=== PATIENT | male | born 1955 | race Caucasian/White ===

== ENCOUNTER 2018-04-05 10:39 | Inpatient (IN) ==
[2018-04-05] MEDS ORDERED: DILTIAZEM 25 MG/5 ML VIAL IV ONE (11:23)
[2018-04-05] MEDS ORDERED: ALUM/MAG/SIMETH/LIDO VISC 1:1 30 ML BOTTLE PO STA (11:24)
[2018-04-05] MEDS ORDERED: MORPHINE 4 MG/1 ML VIAL IV STA (11:24)
[2018-04-05] MEDS ORDERED: ONDANSETRON 4 MG/2 ML VIAL IV STA (11:24)
[2018-04-05] MEDS ORDERED: DILTIAZEM 50 MG/10 ML VIAL IV STA (11:24)
[2018-04-05] MEDS ORDERED: ASPIRIN 325 MG TABLET PO STA (11:24)
[2018-04-05] MEDS ORDERED: SODIUM CHLORIDE 0.9% 500 ML IV STA (11:24)
[2018-04-05] MEDS ORDERED: NITROGLYCERIN 2% OINT 1 INCH/GM PACK TOP STA (11:24)
[2018-04-05 11:29] LABS: Basophils # 0.1 10*3/uL (0.0-0.2); Basophils % 0.9 % (0.0-0.8); Eosinophils # 0.3 10*3/uL (0.0-0.87); Eosinophils % 2.8 % (0.00-10.9); Hematocrit 43.9 VOL% (42.0-52.0); Hemoglobin 15.4 GM/DL (14.0-18.0); Immature Granulocytes % 0.2 %; Immature Granulocytes Absolute 0.02 #; Lymphocytes % 32.8 % (21.2-54.2); Mean Corpuscular HGB Conc 35.1 GM/DL (32-36); Mean Corpuscular Hemoglobin 28 PG (27-34); Mean Platelet Volume 10.2 FL (9.6-12.0); Monocytes # 0.8 10*3/uL (0.11-0.8); Monocytes % 9.2 % (1.7-12.7); Neutrophils # 4.9 10*3/uL (1.4-7.4); Neutrophils % 54.1 % (38.7-73.9); Platelet Count 221 T/CUMM (130-400); Red Blood Count 5.49 MC/CUMM (3.8-5.5); Red Cell Distribution Width 13.7 % (9.3-17.3)
[2018-04-05 11:35] LABS: INR 1.2; PT Patient Result 12.7 SECS
[2018-04-05] MEDS: DILTIAZEM INJ 100 MG in SODIUM CHLORIDE 0.9% 100 ML IV SCH ×2 (11:46→21:49)
[2018-04-05 11:58] LABS: Bilirubin,Total 0.9 MG/DL (0.2-1.0); Calcium 8.5 MG/DL (8.5-10.1); Osmolality,Calculated 274.8 MOS/KG (273-304); Potassium 4.1 MMOL/L (3.5-5.1); Total Protein 7.2 G/DL (6.4-8.3)
[2018-04-05] MEDS ORDERED: MAGNESIUM SULF RIDER 2 GM in PREMIX 1 EACH IV STA (12:05)
[2018-04-05] MEDS ORDERED: ENOXAPARIN 100 MG/ML SYRINGE SUBCUT STA (12:16)
[2018-04-05] MEDS ORDERED: MORPHINE 4 MG/1 ML VIAL IV PRN (17:25)
[2018-04-05] MEDS ORDERED: LACTULOSE 20 GM/30 ML UDCUP PO PRN (17:25)
[2018-04-05] MEDS ORDERED: ACETAMINOPHEN 325 MG TABLET PO PRN (17:25)
[2018-04-05] MEDS ORDERED: DEXTROSE 50% 25 GM/50 ML VIAL IV PRN (17:25)
[2018-04-05] MEDS ORDERED: ONDANSETRON 4 MG/2 ML VIAL IV PRN (17:25)
[2018-04-05] MEDS ORDERED: GLUCAGON 1 MG VIAL IM PRN (17:25)
[2018-04-05] MEDS ORDERED: DOCUSATE SODIUM 100 MG CAPSULE PO PRN (17:25)
[2018-04-05] MEDS ORDERED: MAGNESIUM SULF RIDER 2 GM in PREMIX 1 EACH IV PRN (17:31)
[2018-04-05] MEDS ORDERED: MAGNESIUM SULF RIDER 4 GM in PREMIX 1 EACH IV PRN (17:31)
[2018-04-05] MEDS: INSULIN LISPRO 100 UNIT/ML SUBCUT SCH (21:45)
[2018-04-06 04:55] LABS: Basophils # 0.1 10*3/uL (0.0-0.2); Basophils % 0.8 % (0.0-0.8); Eosinophils # 0.2 10*3/uL (0.0-0.87); Eosinophils % 1.9 % (0.00-10.9); Hematocrit 42.8 VOL% (42.0-52.0); Hemoglobin 14.8 GM/DL (14.0-18.0); Immature Granulocytes % 0.4 %; Immature Granulocytes Absolute 0.05 #; Lymphocytes # 2.5 10*3/uL (1.4-4.0); Lymphocytes % 20.8 % (21.2-54.2); Mean Corpuscular HGB Conc 34.6 GM/DL (32-36); Mean Corpuscular Hemoglobin 28 PG (27-34); Mean Corpuscular Volume 81.2 FL (87-102); Mean Platelet Volume 10.3 FL (9.6-12.0); Monocytes # 1.1 10*3/uL (0.11-0.8); Monocytes % 9.1 % (1.7-12.7); Platelet Count 223 T/CUMM (130-400); Red Blood Count 5.27 MC/CUMM (3.8-5.5); Red Cell Distribution Width 14.3 % (9.3-17.3); White Blood Count 11.9 T/CUMM (4-12)
[2018-04-06 05:21] LABS: Calcium 8.8 MG/DL (8.5-10.1); Osmolality,Calculated 274.7 MOS/KG (273-304); Osmolality,Calculated 276.5 MOS/KG (273-304)
[2018-04-06] MEDS ORDERED: ENOXAPARIN 150 MG/ML SYRINGE SUBCUT SCH (07:00)
[2018-04-06] MEDS: PANTOPRAZOLE 40 MG TABLET PO SCH (09:52)
[2018-04-06] MEDS: METOPROLOL TARTRATE 50 MG TABLET PO SCH ×2 (09:52→21:31)
[2018-04-06] MEDS: INSULIN LISPRO 100 UNIT/ML SUBCUT SCH ×4 (09:52→21:31)
[2018-04-06] MEDS: DILTIAZEM INJ 100 MG in SODIUM CHLORIDE 0.9% 100 ML IV SCH (11:21)
[2018-04-06] MEDS ORDERED: WARFARIN 5 MG TABLET PO SCH (18:00)
[2018-04-07 04:31] LABS: Basophils # 0.1 10*3/uL (0.0-0.2); Eosinophils # 0.3 10*3/uL (0.0-0.87); Eosinophils % 3.3 % (0.00-10.9); Hematocrit 46.6 VOL% (42.0-52.0); Hemoglobin 15.6 GM/DL (14.0-18.0); Immature Granulocytes % 0.3 %; Immature Granulocytes Absolute 0.03 #; Lymphocytes # 3.3 10*3/uL (1.4-4.0); Lymphocytes % 36.4 % (21.2-54.2); Mean Corpuscular HGB Conc 33.5 GM/DL (32-36); Mean Corpuscular Hemoglobin 28 PG (27-34); Mean Corpuscular Volume 82.8 FL (87-102); Mean Platelet Volume 10.6 FL (9.6-12.0); Monocytes % 11.4 % (1.7-12.7); Neutrophils # 4.4 10*3/uL (1.4-7.4); Neutrophils % 47.6 % (38.7-73.9); Platelet Count 202 T/CUMM (130-400); Red Blood Count 5.63 MC/CUMM (3.8-5.5); Red Cell Distribution Width 14.5 % (9.3-17.3); White Blood Count 9.1 T/CUMM (4-12)
[2018-04-07 06:00] LABS: INR 1.1; PT Patient Result 11.3 SECS
[2018-04-07 06:08] LABS: Calcium 8.5 MG/DL (8.5-10.1); Osmolality,Calculated 275.7 MOS/KG (273-304)
[2018-04-07] MEDS: INSULIN LISPRO 100 UNIT/ML SUBCUT SCH (07:28)
[2018-04-07 08:02] VITALS: BP 154/91
[2018-04-07] MEDS: METOPROLOL TARTRATE 50 MG TABLET PO SCH (09:01)
[2018-04-07] MEDS: PANTOPRAZOLE 40 MG TABLET PO SCH (09:02)
== END 2018-04-07 10:40 | disposition home or self-care (01) | DRG 309 ==
LOC: N.ED 10:39 → SUATTDRO 12:16 → N.EDINP 12:16 → N.TELES 14:15
PROVIDERS: ADMIT Internal Medicine; ATTEND Internal Medicine Geriatric Medicine

== ENCOUNTER 2022-10-01 13:30 | Observation (INO) ==
[2022-10-01] MEDS ORDERED: DILTIAZEM 25 MG/5 ML VIAL IV STA (14:04)
[2022-10-01] MEDS: DILTIAZEM INJ 100 MG in SODIUM CHLORIDE 0.9% 100 ML IV SCH (14:14)
[2022-10-01 14:20] LABS: Basophils # 0.1 10*3/uL (0.0-0.2); Basophils % 0.4 % (0.0-0.8); Eosinophils % 0.1 % (0.00-10.9); Hematocrit 49.9 VOL% (42.0-52.0); Hemoglobin 17.6 GM/DL (14.0-18.0); Immature Granulocytes % 0.8 %; Immature Granulocytes Absolute 0.11 #; Lymphocytes # 0.9 10*3/uL (1.4-4.0); Lymphocytes % 6.4 % (21.2-54.2); Mean Corpuscular HGB Conc 35.3 GM/DL (32-36); Mean Corpuscular Volume 79.2 FL (87-102); Mean Platelet Volume 10.4 FL (9.6-12.0); Monocytes # 1.9 10*3/uL (0.11-0.8); Monocytes % 14.7 % (1.7-12.7); Neutrophils % 77.6 % (38.7-73.9); Platelet Count 214 T/CUMM (130-400); Red Cell Distribution Width 14.1 % (9.3-17.3); White Blood Count 13.2 T/CUMM (4-12)
[2022-10-01 14:27] LABS: Albumin 4.2 G/DL (3.4-5.0); Bilirubin,Total 2.9 MG/DL (0.20-1.00); Calcium 9.7 MG/DL (8.5-10.1); Osmolality,Calculated 278.4 MOS/KG (273-304); Potassium 3.1 MMOL/L (3.5-5.1); Total Protein 8.2 G/DL (6.4-8.2)
[2022-10-01 14:28] LABS: PT Patient Result 10.9 SECS (10.1-12.1)
[2022-10-01] MEDS ORDERED: hydrALAZINE 20 MG/1 ML VIAL IV PRN (15:06)
[2022-10-01] MEDS ORDERED: ACETAMINOPHEN 325 MG TABLET PO PRN (15:06)
[2022-10-01] MEDS ORDERED: ONDANSETRON 4 MG/2 ML VIAL IV PRN (15:06)
[2022-10-01] MEDS ORDERED: guaiFENesin/DM ER 600-30 MG TABLET PO PRN (15:06)
[2022-10-01] MEDS ORDERED: DOCUSATE SODIUM 100 MG CAPSULE PO PRN (15:06)
[2022-10-01] MEDS ORDERED: GLUCAGON 1 MG VIAL IM PRN (15:06)
[2022-10-01] MEDS ORDERED: POTASSIUM CHLORIDE 20 MEQ TABLET PO STA (15:11)
[2022-10-01] MEDS ORDERED: DEXTROSE 10% 250 ML BAG IV PRN (15:19)
[2022-10-01] MEDS: INSULIN REGULAR 100 UNIT/ML SUBCUT SCH ×2 (16:30→20:22)
[2022-10-01] MEDS: SODIUM CHLOR 0.9% KCL 20 MEQ 20 MEQ/1,000 ML BAG IV SCH (16:30)
[2022-10-01 17:14] LABS: Bacteria,Urine Occasional /HPF (Few); Bilirubin,Urine Negative (Negative); Blood, Urine Trace mg/dL (Negative); Glucose,Urine (UA) 500 mg/dL (Negative); Hyaline Casts,Urine 3 /LPF (0-3); Ketones,Urine Negative (Negative); Nitrite,Urine Negative (Negative); Protein,Urine Negative (Negative); RBC,Urine 2 /HPF (0-4); Urine Appearance Clear (Clear); Urine Color Yellow (Yellow)
[2022-10-01 17:15] LABS: Urine Urobilinogen 0.2 eU/dL (<2.0)
[2022-10-01 19:17] LABS: Barbiturates Screen,Urine Negative (Negative); Benzodiazepines Screen,Urine Negative (Negative); Cannabinoid Screen,Urine Negative (Negative); Opiate Screen,Urine Negative (Negative); Phencyclidine Screen,Urine Negative (Negative)
[2022-10-01] MEDS ORDERED: ENOXAPARIN 40 MG/0.4 ML SYRINGE SUBCUT SCH (21:00)
[2022-10-02 04:39] LABS: Basophils % 0.3 % (0.0-0.8); Eosinophils % 0.3 % (0.00-10.9); Hematocrit 45.9 VOL% (42.0-52.0); Hemoglobin 16.1 GM/DL (14.0-18.0); Immature Granulocytes % 0.4 %; Immature Granulocytes Absolute 0.05 #; Lymphocytes # 1.7 10*3/uL (1.4-4.0); Lymphocytes % 13.8 % (21.2-54.2); Mean Corpuscular HGB Conc 35.1 GM/DL (32-36); Mean Corpuscular Volume 79.7 FL (87-102); Mean Platelet Volume 10.2 FL (9.6-12.0); Monocytes # 2.2 10*3/uL (0.11-0.8); Monocytes % 17.4 % (1.7-12.7); Neutrophils % 67.8 % (38.7-73.9); Platelet Count 215 T/CUMM (130-400); Red Blood Count 5.76 MC/CUMM (3.8-5.5); White Blood Count 12.4 T/CUMM (4-12)
[2022-10-02 04:58] LABS: PT Patient Result 11.1 SECS (10.1-12.1)
[2022-10-02] MEDS: SODIUM CHLOR 0.9% KCL 20 MEQ 20 MEQ/1,000 ML BAG IV SCH ×3 (04:59→21:57)
[2022-10-02 05:09] LABS: Band Neutrophils 5 % (0-10); Lymphocytes 15 % (20-55); Total Cells Counted 100
[2022-10-02 05:10] LABS: Microcytosis 1+
[2022-10-02 05:14] LABS: Calcium 8.8 MG/DL (8.5-10.1); Osmolality,Calculated 276.8 MOS/KG (273-304); Risk Ratio 7.22; Thyroid Stimulating Hormone 2.05 uIU/ml (0.358-3.74); VLDL Cholesterol 49.4 MG/DL
[2022-10-02] MEDS: INSULIN REGULAR 100 UNIT/ML SUBCUT SCH ×4 (08:17→21:56)
[2022-10-02] MEDS: POTASSIUM CHLORIDE 20 MEQ TABLET PO SCH ×2 (09:51→14:04)
[2022-10-02] MEDS: PANTOPRAZOLE 40 MG TABLET PO SCH (09:52)
[2022-10-02] MEDS ORDERED: DAPAGLIFLOZIN 10 MG TABLET PO SCH (10:00)
[2022-10-02] MEDS: METOPROLOL SUCCINATE XL 100 MG TABLET PO SCH (11:06)
[2022-10-02] MEDS: SPIRONOLACTONE 25 MG TABLET PO SCH (11:06)
[2022-10-02] MEDS: DILTIAZEM CD 120 MG CAPSULE PO SCH (11:06)
[2022-10-02] MEDS: sitaGLIPtin 100 MG TABLET PO SCH (11:06)
[2022-10-02] MEDS: DILTIAZEM INJ 100 MG in SODIUM CHLORIDE 0.9% 100 ML IV SCH (17:14)
[2022-10-02] MEDS: metFORMIN 500 MG TABLET PO SCH (17:16)
[2022-10-02] MEDS ORDERED: ATORVASTATIN 40 MG TABLET PO SCH (21:00)
[2022-10-02] MEDS: APIXABAN 5 MG TABLET PO SCH (21:56)
[2022-10-03 05:14] LABS: Basophils # 0.1 10*3/uL (0.0-0.2); Basophils % 0.4 % (0.0-0.8); Eosinophils # 0.3 10*3/uL (0.0-0.87); Eosinophils % 2.3 % (0.00-10.9); Hematocrit 43.6 VOL% (42.0-52.0); Hemoglobin 15.3 GM/DL (14.0-18.0); Immature Granulocytes % 0.6 %; Immature Granulocytes Absolute 0.07 #; Lymphocytes # 2.3 10*3/uL (1.4-4.0); Lymphocytes % 20.8 % (21.2-54.2); Mean Corpuscular HGB Conc 35.1 GM/DL (32-36); Mean Corpuscular Volume 81.2 FL (87-102); Monocytes # 1.6 10*3/uL (0.11-0.8); Monocytes % 14.4 % (1.7-12.7); Neutrophils % 61.5 % (38.7-73.9); Platelet Count 244 T/CUMM (130-400); Red Blood Count 5.37 MC/CUMM (3.8-5.5); Red Cell Distribution Width 14.4 % (9.3-17.3); White Blood Count 11.1 T/CUMM (4-12)
[2022-10-03 05:22] LABS: PT Patient Result 11.1 SECS (10.1-12.1)
[2022-10-03 05:42] LABS: Calcium 9.1 MG/DL (8.5-10.1); Osmolality,Calculated 280.1 MOS/KG (273-304); Potassium 3.4 MMOL/L (3.5-5.1)
[2022-10-03] MEDS ORDERED: PANTOPRAZOLE 40 MG TABLET PO SCH (09:00)
[2022-10-03] MEDS ORDERED: DAPAGLIFLOZIN 5 MG TABLET PO SCH (09:00)
[2022-10-03] MEDS: INSULIN REGULAR 100 UNIT/ML SUBCUT SCH ×2 (09:53→13:18)
[2022-10-03] MEDS: PANTOPRAZOLE 40 MG TABLET PO SCH (09:54)
[2022-10-03] MEDS: metFORMIN 500 MG TABLET PO SCH (09:54)
[2022-10-03] MEDS: SPIRONOLACTONE 25 MG TABLET PO SCH (09:54)
[2022-10-03] MEDS: DILTIAZEM CD 120 MG CAPSULE PO SCH (09:54)
[2022-10-03] MEDS: METOPROLOL SUCCINATE XL 100 MG TABLET PO SCH (09:54)
[2022-10-03] MEDS: APIXABAN 5 MG TABLET PO SCH (09:54)
[2022-10-03] MEDS: sitaGLIPtin 100 MG TABLET PO SCH (09:57)
[2022-10-03 12:33] VITALS: BP 103/57
[2022-10-03] MEDS: SODIUM CHLOR 0.9% KCL 20 MEQ 20 MEQ/1,000 ML BAG IV SCH (13:18)
== END 2022-10-03 14:00 | disposition home or self-care (01) ==
LOC: N.EDINP 13:30 → N.ED 13:30 → SUATTDRO 14:58 → N.TELEN 17:08
PROVIDERS: ADMIT Internal Medicine; ATTEND Internal Medicine